=== PATIENT | female | born 1980 | race American Indian/Alaskan Native ===

== ENCOUNTER 2017-12-10 23:28 | Emergency (ER) | payer SELFPAY ==
[2017-12-11] MEDS ORDERED: NORCO 5/325 ONE (01:24)
[2017-12-11] MEDS ORDERED: NORCO 5/325 PO ONE (01:29)
[2017-12-11] MEDS ORDERED: MOTRIN ONE (03:27)
[2017-12-11] MEDS ORDERED: MOTRIN PO ONE (03:32)
--- NOTE | 2017-12-11 06:17 | Emergency Department Report ---
ED ENT HPI - General Chief complaint: Dental/Oral Stated complaint: TOOTHACHE Time Seen by Provider: 12/11/17 06:12 Source: patient, family Mode of arrival: Ambulatory Limitations: No Limitations - History of Present Illness Initial comments: 37-year-old -French female comes in for tooth pain that started this morning. Patient reports she took ibuprofen about 7:30 this afternoon. Patient reports some nausea no vomiting no fever no chills. She was given [place] and then Motrin since being here at the ER. Patient reports that she just got some pain relief about 3:00 this morning. She reports that this did front tooth that she has broken off. She denies any swelling to her face or jaw. He has no past medical history currently takes no medication and is allergic to penicillin. MD complaint: tooth pain -: days(s) (1) Location: tooth # (7) Severity: severe Severity scale (0 -10): 10 Quality: aching Consistency: constant Improves with: none, NSAID Worsens with: none Context- Dental: history of dental caries (from eating ice and broke her tooth from) Associated Symptoms: denies: fever, cough, gum swelling, pain with swallowing, sore throat - Related Data Previous Rx's Medication Instructions Recorded Last Taken Type Acetaminophen/Codeine [Tylenol 1 tab PO Q4HR PRN #20 tablet 12/11/17 Unknown Rx /Codeine # 3 tab] Ibuprofen 800 mg PO Q8H PRN #30 tablet 12/11/17 Unknown Rx Allergies Allergy/AdvReac Type Severity Reaction Status Date / Time Penicillins Allergy Hives Verified 12/11/17 00:38 ED Dental HPI - General Chief complaint: Dental/Oral Stated complaint: TOOTHACHE Time Seen by Provider: 12/11/17 06:12 Source: patient, family Mode of arrival: Ambulatory Limitations: No Limitations - Related Data Previous Rx's Medication Instructions Recorded Last Taken Type Acetaminophen/Codeine [Tylenol 1 tab PO Q4HR PRN #20 tablet 12/11/17 Unknown Rx /Codeine # 3 tab] Ibuprofen 800 mg PO Q8H PRN #30 tablet 12/11/17 Unknown Rx Allergies Allergy/AdvReac Type Severity Reaction Status Date / Time Penicillins Allergy Hives Verified 12/11/17 00:38 ED Review of Systems ROS: Stated complaint: TOOTHACHE Other details as noted in HPI Constitutional: denies: chills, fever Eyes: denies: eye pain, eye discharge, vision change ENT: dental pain Respiratory: denies: cough, shortness of breath, wheezing Cardiovascular: denies: chest pain, palpitations Endocrine: no symptoms reported Gastrointestinal: denies: abdominal pain, nausea, diarrhea Genitourinary: denies: urgency, dysuria, discharge Musculoskeletal: denies: back pain, joint swelling, arthralgia Skin: denies: rash, lesions Neurological: denies: headache, weakness, paresthesias Psychiatric: denies: anxiety, depression Hematological/Lymphatic: denies: easy bleeding, easy bruising ED Past Medical Hx - Past Medical History Previous Medical History?: No - Surgical History Past Surgical History?: No - Social History Smoking Status: Current Every Day Smoker Substance Use Type: None - Medications Home Medications: Home Medications Medication Instructions Recorded Confirmed Last Taken Type Acetaminophen/Codeine [Tylenol 1 tab PO Q4HR PRN #20 tablet 12/11/17 Unknown Rx /Codeine # 3 tab] Ibuprofen 800 mg PO Q8H PRN #30 tablet 12/11/17 Unknown Rx ED Physical Exam - General Limitations: No Limitations General appearance: alert, in no apparent distress - Head Head exam: Present: atraumatic, normocephalic - Eye Eye exam: Present: normal appearance - ENT ENT exam: Present: mucous membranes moist - Expanded ENT Exam Expanded Teeth exam: Present: fractured tooth # (7), dental tenderness # (7). Absent: dental caries, gingival enlargement Throat exam: Positive: normal inspection - Neck Neck exam: Present: normal inspection - Respiratory Respiratory exam: Absent: respiratory distress - Cardiovascular Cardiovascular Exam: Present: regular rate - Extremities Exam Extremities exam: Present: normal inspection, full ROM - Back Exam Back exam: Present: full ROM - Neurological Exam Neurological exam: Present: alert, oriented X3, normal gait - Psychiatric Psychiatric exam: Present: normal affect, normal mood - Skin Skin exam: Present: warm, dry, intact, normal color. Absent: rash ED Course Vital Signs 12/11/17 12/11/17 12/11/17 00:22 00:39 01:32 Temperature 99.5 F 99.5 F Pulse Rate 88 88 Respiratory 18 18 18 Rate Blood Pressure 127/89 127/89 O2 Sat by Pulse 98 98 Oximetry ED Medical Decision Making - Medical Decision Making Patient has been evaluated by this provider fast track. I discussed the patient that it appears that she has a fracture to her #7 tooth with possible nerve exposure. I discussed patient that there is no swelling of her gums to indicate any infection. I discussed the patient I'll give her pain medication and she needs to follow up with the dentist sooner day later. Patient verbalized understanding. Critical care attestation.: If time is entered above; I have spent that time in minutes in the direct care of this critically ill patient, excluding procedure time. ED Disposition Clinical Impression: Pain, dental Fracture, tooth Qualifiers: Encounter type: initial encounter Fracture type: open Qualified Code(s): S02.5XXB - Fracture of tooth (traumatic), initial encounter for open fracture Disposition: TO HOME OR SELFCARE Is pt being admited?: No Does the pt Need Aspirin: No Condition: Stable Instructions: Toothache (ED) Additional Instructions: Take pain medication as prescribed. Please do not operate heavy machinery while taking Tylenol No. 3. Follow up with a dentist sooner and her later. Prescriptions: Acetaminophen/Codeine [Tylenol /Codeine # 3 tab] 1 tab PO Q4HR PRN #20 tablet PRN Reason: Pain Ibuprofen 800 mg PO Q8H PRN #30 tablet PRN Reason: Pain Referrals: PRIMARY CARE,MD [Primary Care Provider] - 3-5 Days [facility] [Outside] - 3-5 Days [facility] [Outside] - 3-5 Days Forms: Work/School Release Form(ED), Accompanied Note
[2017-12-11 08:11] VITALS: BP 111/69
== END 2017-12-11 08:10 | disposition home or self-care (01) ==
LOC: ED 23:28
DX: S02.5XXB Fracture of tooth (traumatic), initial encounter for open fracture (principal); F17.200 Nicotine dependence, unspecified, uncomplicated; Z88.0 Allergy status to penicillin; X58.XXXA Exposure to other specified factors, initial encounter; Y93.89 Activity, other specified; Y92.89 Other specified places as the place of occurrence of the external cause; Y99.8 Other external cause status
CPT/HCPCS: 99282

== ENCOUNTER 2019-07-01 19:26 | Emergency (ER) | payer OTHER ==
[2019-07-01 19:46] VITALS: BP 141/87
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
--- NOTE | 2019-07-01 20:34 | XRay Report ---
CLINICAL DATA: low back pain TECHNICAL DATA: AP and lateral views lumbar spine. FINDINGS: The bone mineralization is normal. Vertebral body heights are normal. Intervertebral disc spaces are well maintained except for narrowing L5-S1. Anterior and posterior osteophytes are present with moder ate facet degenerative changes at L4-5. Pedicles and spinous processes are normal in alignment. SI kacy ints and sacrum are normal. IMPRESSION: Degenerative changes as noted Signer Name: Surseh Orozco MD Signed: 07/01/2019 8:29 PM Workstation Name: [id number]
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
== END 2019-07-01 21:09 | disposition home or self-care (01) ==
LOC: ED 19:26
DX: S33.5XXA Sprain of ligaments of lumbar spine, initial encounter (principal); F17.200 Nicotine dependence, unspecified, uncomplicated; Z79.899 Other long term (current) drug therapy; Z88.0 Allergy status to penicillin; V89.2XXA Person injured in unspecified motor-vehicle accident, traffic, initial encounter; Y93.89 Activity, other specified; Y92.488 Other paved roadways as the place of occurrence of the external cause; Y99.8 Other external cause status
CPT/HCPCS: 72100; 99283

== ENCOUNTER 2022-04-29 12:00 | Emergency (ER) | payer SELFPAY ==
[2022-04-29] MEDS ORDERED: ACETAMINOPHEN W/CODEINE 300-30 MG TAB PO ONE ×2 (13:47→18:00)
[2022-04-29] MEDS ORDERED: KETOROLAC 10 MG TAB PO ONE ×2 (13:47→18:00)
--- NOTE | 2022-04-29 13:50 | Emergency Department Report ---
ED Lower Extremity HPI - General Stated Complaint: RT ANKLE INJURY/FALL Time Seen by Provider: 04/29/22 13:46 - History of Present Illness Initial Comments: 42-year-old black female with no past medical history presents to the emergency department for evaluation of right ankle pain and swelling. She states that she fell last night and injured her ankle, denies loss of consciousness. She presents with pain and swelling to her right ankle. She states that she has not been able to bear weight to the right ankle. MD Complaint: ankle injury -: Sudden, Last night Injury: Ankle: Right Place: home Severity: severe Severity scale (0 -10): 9 Worsens With: weight bearing, movement, palpation Context: fall Associated Symptoms: swelling, unable to bear weight. denies: snap/pop sensation, numbness, tingling - Related Data Previous Rx's Medication Instructions Recorded Last Taken Type Ibuprofen [Ibuprofen 800] 800 mg PO Q8H PRN #30 tablet 12/11/17 Unknown Rx Acetaminophen/Codeine [Tylenol 1 tab PO Q4HR PRN #10 tablet 07/01/19 Unknown Rx /Codeine # 3 tab] Metaxalone [Skelaxin] 800 mg PO TID PRN #15 tablet 07/01/19 Unknown Rx Acetaminophen/Codeine [Tylenol 1 tab PO Q6H PRN #12 tab 04/29/22 Unknown Rx /Codeine # 3 tab] Ketorolac [Toradol] 10 mg PO Q6H PRN #12 tab 04/29/22 Unknown Rx Allergies Allergy/AdvReac Type Severity Reaction Status Date / Time Penicillins Allergy Hives Verified 12/11/17 00:38 ED Review of Systems ROS: Stated complaint: RT ANKLE INJURY/FALL Other details as noted in HPI Comment: All other systems reviewed and negative Constitutional: denies: chills, fever Respiratory: denies: shortness of breath Cardiovascular: denies: chest pain, palpitations Gastrointestinal: denies: abdominal pain, nausea, vomiting Musculoskeletal: denies: back pain Neurological: denies: headache ED Past Medical Hx - Social History Smoking Status: Current Every Day Smoker Substance Use Type: None - Medications Home Medications: Home Medications Medication Instructions Recorded Confirmed Last Taken Type Ibuprofen [Ibuprofen 800] 800 mg PO Q8H PRN #30 tablet 12/11/17 Unknown Rx Acetaminophen/Codeine [Tylenol 1 tab PO Q4HR PRN #10 tablet 07/01/19 Unknown Rx /Codeine # 3 tab] Metaxalone [Skelaxin] 800 mg PO TID PRN #15 tablet 07/01/19 Unknown Rx Acetaminophen/Codeine [Tylenol 1 tab PO Q6H PRN #12 tab 04/29/22 Unknown Rx /Codeine # 3 tab] Ketorolac [Toradol] 10 mg PO Q6H PRN #12 tab 04/29/22 Unknown Rx ED Physical Exam - General General appearance: alert, in no apparent distress - Head Head exam: Absent: atraumatic, normocephalic - Eye Eye exam: Present: normal appearance. Absent: conjunctival injection - Respiratory Respiratory exam: Absent: respiratory distress - Cardiovascular Cardiovascular Exam: Present: regular rate - GI/Abdominal GI/Abdominal exam: Absent: distended - Expanded Lower Extremity Exam Right Ankle exam: Present: tenderness, swelling. Absent: normal inspection, full ROM, ecchymosis, deformity, crepidus, dislocation, erythema Foot/Toe exam: Present: normal inspection Neuro vascular tendon exam: Present: no vascular compromise. Absent: pulse deficit, abnormal cap refill, motor deficit, extremity cold to touch, pallor Gait: Positive: unable to bear weight - Back Exam Back exam: Present: normal inspection - Neurological Exam Neurological exam: Present: alert, oriented X3 - Psychiatric Psychiatric exam: Present: normal affect, normal mood - Skin Skin exam: Present: warm, dry, intact, normal color ED Course Vital Signs 04/29/22 04/29/22 13:45 17:48 Temperature 98 F 98.8 F Pulse Rate 82 78 Respiratory 14 18 Rate Blood Pressure 124/82 Blood Pressure 132/77 [Right] O2 Sat by Pulse 98 98 Oximetry - Orthopedic Splinting/Casting Injury #1 Side: right Lower Extremity Injury Location: ankle Lower Extremity Immobilizer: posterior splint (colton splint) Other Orthopedic Equipment: crutches Additional Comments: CMS intact after application. Patient tolerated well. ED Lower Extremity MDM - Radiology Data Radiology results: report reviewed, image reviewed Right ankle x-ray: IMPRESSION: There is moderate diffuse soft tissue swelling. A subtle nondisplaced vertical fracture line is identified in the posterior, distal tibia which is appreciated only on the lateral view. The distal fibula and hindfoot appear intact. No significant joint pathology. - Medical Decision Making 42-year-old black female with no past medical history presents to the emergency department for evaluation of right ankle pain and swelling. She states that she fell last night and injured her ankle, denies loss of consciousness. She presents with pain and swelling to her right ankle. She states that she has not been able to bear weight to the right ankle. Xray positive for distal tibular fracture. Splint per my procedure note. Patient d/emelyn home with naprosyn and Tylenol # 3. She is advised to follow up with orthopedics for further evaluation and management or return to ED as needed. She verbalized understanding of and agreement with plan of care. Critical care attestation.: If time is entered above; I have spent that time in minutes in the direct care of this critically ill patient, excluding procedure time. ED Disposition Clinical Impression: Fracture of distal end of right tibia Qualifiers: Encounter type: initial encounter Fracture type: closed Fracture morphology: unspecified fracture morphology Qualified Code(s): S82.301A - Unspecified fracture of lower end of right tibia, initial encounter for closed fracture Disposition: 01 HOME / SELF CARE / HOMELESS Is pt being admited?: No Does the pt Need Aspirin: No Condition: Stable Instructions: Cast or Splint Care, Adult, [id number], Tibial Fracture, Adult, [id number] Additional Instructions: Take medications as prescribed. No weightbearing on ankle. Follow-up with orthopedics for further evaluation and management. Return to the emergency department as needed. Prescriptions: Ketorolac [Toradol] 10 mg PO Q6H PRN #12 tab PRN Reason: Pain Acetaminophen/Codeine [Tylenol /Codeine # 3 tab] 1 tab PO Q6H PRN #12 tab PRN Reason: Pain , Severe (7-10) Referrals: DOTTIE BROWN MD [Staff Physician] - 3-5 Days Forms: Work/School Release Form(ED) Time of Disposition: 17:09
--- NOTE | 2022-04-29 14:14 | XRay Report ---
RIGHT ANKLE 3 VIEWS INDICATION: fell, pain and swelling. COMPARISON: None. IMPRESSION: There is moderate diffuse soft tissue swelling. A subtle nondisplaced vertical fracture line is identified in the posterior, distal tibia which is appreciated only on the lateral view. The distal fibula and hindfoot appear intact. No significant joint pathology. Signer Name: Vimal Orta Jr, MD Signed: 04/29/2022 2:10 PM Workstation Name: [id number]
[2022-04-29 17:51] VITALS: BP 132/77
== END 2022-04-29 17:48 | disposition home or self-care (01) ==
LOC: ED 12:00
DX: S82.301A Unspecified fracture of lower end of right tibia, initial encounter for closed fracture (principal); F17.200 Nicotine dependence, unspecified, uncomplicated; W19.XXXA Unspecified fall, initial encounter; Y93.89 Activity, other specified; Y92.89 Other specified places as the place of occurrence of the external cause; Y99.8 Other external cause status
CPT/HCPCS: 99283